=== PATIENT | female | born 1985 | race Hispanic/Latino ===

== ENCOUNTER 2020-09-25 03:54 | Inpatient (IN) | payer OTHER ==
[2020-09-25] VITALS (9 sets, daily range): BP systolic 91–107; BP diastolic 55–66
[~2020-09-25] VITALS: Ht 162.6 cm; Wt 71.8 kg
[2020-09-25 04:43] LABS: BASOPHILS % (AUTO) 0.2 % (0.0-5.0); HEMATOCRIT 39.5 % (36-48); LYMPHOCYTES % (AUTO) 46.2 % (21.0-51.0); MEAN CORPUSCULAR HEMOGLOBIN 29.2 pg (27.0-33.0); MEAN CORPUSCULAR HGB CONC 33.7 g/dL (32.0-36.0); MEAN CORPUSCULAR VOLUME 86.6 fL (79-99); MONOCYTES % (AUTO) 4.8 % (3.0-13.0); NEUTROPHILS % (AUTO) 48.6 % (40.0-77.0); PLATELET COUNT (AUTO) 112 K/uL (130-400); RED BLOOD CELL COUNT(AUTO) 4.56 MIL/uL (4.00-5.50); RED CELL DISTRIBUTION WIDTH 12.6 % (11.0-15.5); WHITE BLOOD COUNT (AUTO) 4.4 K/uL (4.8-10.8)
[2020-09-25 04:47] LABS: CARBON DIOXIDE 24 mmol/L (21-32); CHLORIDE 103 mmol/L (101-111); CREATININE 0.7 mg/dL (0.5-1.5); GLOMERULAR FILTR. RATE CALC 103 mL/min (>60); GLUCOSE,RANDOM 89 mg/dL (70-105); POTASSIUM 4.8 mmol/L (3.5-5.1); SODIUM SERUM 137 mmol/L (136-145); UREA NITROGEN, BLOOD 8 mg/dL (7-18)
[2020-09-25 05:04] LABS: ALANINE AMINOTRANSFERASE 53 U/L (12-78); ALBUMIN 2.8 g/dL (3.5-5.0); ASPARTATE AMINOTRANSFERASE 118 U/L (10-37); BILIRUBIN,DIRECT < 0.1 mg/dL (0.0-0.3); BILIRUBIN,TOTAL 0.6 mg/dL (0.2-1.0); LACTATE DEHYDROGENASE 884 U/L (81-234); TOTAL PROTEIN, SERUM 6.6 g/dL (6.0-8.3)
[2020-09-25 05:06] LABS: CREATINE KINASE, TOTAL 424 U/L (21-232)
[2020-09-25 05:46] LABS: ERYTHROCYTE SEDIMENTATION RATE 16 MM/HR (0-20)
[2020-09-25] MEDS ORDERED: ONDANSETRON 4MG INJ IV PRN (06:00)
[2020-09-25] MEDS ORDERED: NITROGLYCERIN 0.4 MG SL TAB SL PRN (06:00)
[2020-09-25] MEDS ORDERED: DEXAMETHASONE SOD PHOSPHATE 4 MG/ML 1ML VIAL IVP SCH (06:00)
[2020-09-25] MEDS ORDERED: ACETAMINOPHEN 325 MG TAB PO PRN ×2 (06:00)
[2020-09-25] MEDS ORDERED: CEFTRIAXONE 1G VIAL IVP SCH (06:00)
[2020-09-25] MEDS ORDERED: IOHEXOL-350 75 ML VIAL IV ONE (06:47)
[2020-09-25 06:58] LABS: PROTHROMBIN TIME 10.9 SEC (9.6-11.6)
[2020-09-25] MEDS ORDERED: ERGOCALCIFEROL (VITAMIN D2) 50,000 UNIT CAPSULE PO SCH (06:58)
[2020-09-25 06:59] LABS: PARTIAL THROMBOPLASTIN TIME 35.4 SEC (26.3-35.5)
[2020-09-25] MEDS ORDERED: DEXAMETHASONE 10MG/ML 1ML VIAL 10 MG in 0.9% NACL 50ML 50 ML IV SCH (07:00)
[2020-09-25] MEDS ORDERED: AZITHROMYCIN 500MG+NS 250ML 250 ML IV ONE (07:19)
[2020-09-25] MEDS: AZITHROMYCIN 500MG VIAL IVPB SCH ×2 (07:28→09:00)
[2020-09-25] MEDS ORDERED: PHARMACY COMMUNICATION MISC SCH ×2 (08:15→10:30)
[2020-09-25 08:29] LABS: ABG BASE EXCESS -1.7 mmol/L (-2.0-3.0); ABG HCO3 21.8 mmol/L (21.0-28.0); ABG OXYGEN SATURATION 98.9 % (95.0-99.0); ABG PCO2 34 mmHg (32-45)
[2020-09-25 09:00] LABS: HEMOGLOBIN A1C 5.6 % (4.0-6.0)
[2020-09-25] MEDS ORDERED: AZITHROMYCIN 500MG VIAL IVPB SCH (09:00)
[2020-09-25] MEDS ORDERED: ENOXAPARIN SODIUM 40 MG/0.4 ML SYRINGE SQ SCH (09:00)
[2020-09-25] MEDS ORDERED: ACETYLCYSTEINE 600 MG CAPSULE PO SCH (09:00)
[2020-09-25 09:18] LABS: ALCOHOL, BLOOD < 3 mg/dL (0-10); THYROID STIMULATING HORMONE 0.48 uIU/mL (0.36-3.74)
[2020-09-25] MEDS: ALBUTEROL INHALER 90MCG/INH IH SCH ×4 (10:00→20:46)
[2020-09-25] MEDS: GUAIFENESIN-DM 200/20 MG 10 ML PO SCH ×3 (10:40→20:34)
[2020-09-25] MEDS: ZINC SULFATE 220 CAPSULE PO SCH (10:40)
[2020-09-25] MEDS: ENOXAPARIN SODIUM 40 MG/0.4 ML SYRINGE SQ SCH ×2 (10:40→20:46)
[2020-09-25] MEDS: ASCORBIC ACID 500 MG TAB PO SCH (10:41)
[2020-09-25] MEDS: FAMOTIDINE 20MG TAB PO SCH ×2 (10:41→20:34)
[2020-09-25] MEDS: INSULIN HUMULIN R 100 UNIT/ML 3ML SQ SCH ×3 (11:30→20:44)
[2020-09-25] MEDS ORDERED: [UNRECOGNIZED DRUG - OTHER] IV ONE (14:00)
[2020-09-25] MEDS ORDERED: COMPOUND IV REFRIGERATED 1 EACH IVSOLN MISC PRN (14:00)
[2020-09-25] MEDS ORDERED: REMDESIVIR IV ONE (14:00)
[2020-09-25] MEDS ORDERED: GUAIFENESIN 600 MG TABLET.ER PO ONE (20:33)
[2020-09-25] MEDS: DEXAMETHASONE SOD PHOSPHATE 4 MG/ML 1ML VIAL IVP SCH (20:34)
[2020-09-26] MEDS: GUAIFENESIN-DM 200/20 MG 10 ML PO SCH ×3 (00:25→12:04)
[2020-09-26] MEDS: ALBUTEROL INHALER 90MCG/INH IH SCH ×6 (00:25→23:42)
[2020-09-26 03:54] VITALS: BP 109/59
[2020-09-26 05:07] LABS: BASOPHILS % (AUTO) 0.3 % (0.0-5.0); HEMATOCRIT 41.3 % (36-48); LYMPHOCYTES % (AUTO) 34.8 % (21.0-51.0); MEAN CORPUSCULAR HEMOGLOBIN 29.9 pg (27.0-33.0); MEAN CORPUSCULAR HGB CONC 34.1 g/dL (32.0-36.0); MEAN CORPUSCULAR VOLUME 87.7 fL (79-99); MONOCYTES % (AUTO) 6.4 % (3.0-13.0); NEUTROPHILS % (AUTO) 57.9 % (40.0-77.0); PLATELET COUNT (AUTO) 129 K/uL (130-400); RED BLOOD CELL COUNT(AUTO) 4.71 MIL/uL (4.00-5.50); RED CELL DISTRIBUTION WIDTH 12.6 % (11.0-15.5); WHITE BLOOD COUNT (AUTO) 3.4 K/uL (4.8-10.8)
[2020-09-26] MEDS: INSULIN HUMULIN R 100 UNIT/ML 3ML SQ SCH ×4 (05:30→20:58)
[2020-09-26] MEDS: REMDESIVIR LABS MISC SCH (05:33)
[2020-09-26 05:40] LABS: ALBUMIN 2.9 g/dL (3.5-5.0); BILIRUBIN,TOTAL 0.5 mg/dL (0.2-1.0); CREATININE 0.5 mg/dL (0.5-1.5); POTASSIUM 3.9 mmol/L (3.5-5.1); TOTAL PROTEIN, SERUM 6.7 g/dL (6.0-8.3)
[2020-09-26] MEDS: ZINC SULFATE 220 CAPSULE PO SCH (08:37)
[2020-09-26] MEDS: FAMOTIDINE 20MG TAB PO SCH ×2 (08:37→20:31)
[2020-09-26] MEDS: ASCORBIC ACID 500 MG TAB PO SCH (08:37)
[2020-09-26] MEDS: DEXAMETHASONE SOD PHOSPHATE 4 MG/ML 1ML VIAL IVP SCH ×2 (08:38→20:31)
[2020-09-26] MEDS: ENOXAPARIN SODIUM 40 MG/0.4 ML SYRINGE SQ SCH ×2 (08:39→20:33)
[2020-09-26 08:48] VITALS: BP 121/65
[2020-09-26 12:02] VITALS: BP 104/48
[2020-09-26] MEDS: BUSPIRONE HCL 5 MG TABLET PO SCH ×2 (12:04→20:31)
[2020-09-26] MEDS: GUAIFENESIN-CODEINE 5 ML SYRUP PO SCH ×2 (13:45→18:16)
[2020-09-26] MEDS: REMDESIVIR IV SCH (14:12)
[2020-09-26] MEDS: [UNRECOGNIZED DRUG - OTHER] IV SCH (14:12)
[2020-09-26 16:44] VITALS: BP 117/69
[2020-09-26 19:55] VITALS: BP 109/59
[2020-09-26 23:16] VITALS: BP 102/58
[2020-09-27] MEDS: GUAIFENESIN-CODEINE 5 ML SYRUP PO SCH ×5 (01:15→22:11)
[2020-09-27] MEDS: ALBUTEROL INHALER 90MCG/INH IH SCH ×6 (02:00→20:56)
[2020-09-27 03:53] VITALS: BP 96/51
[2020-09-27 04:50] LABS: EOSINOPHILS % (AUTO) 2.3 % (0.0-8.0); HEMATOCRIT 40.8 % (36-48); LYMPHOCYTES % (AUTO) 27.7 % (21.0-51.0); MEAN CORPUSCULAR HEMOGLOBIN 29.9 pg (27.0-33.0); MEAN CORPUSCULAR HGB CONC 33.8 g/dL (32.0-36.0); MEAN CORPUSCULAR VOLUME 88.3 fL (79-99); MONOCYTES % (AUTO) 8.5 % (3.0-13.0); PLATELET COUNT (AUTO) 159 K/uL (130-400); RED BLOOD CELL COUNT(AUTO) 4.62 MIL/uL (4.00-5.50); RED CELL DISTRIBUTION WIDTH 12.9 % (11.0-15.5)
[2020-09-27 05:28] LABS: ALBUMIN 2.7 g/dL (3.5-5.0); BILIRUBIN,TOTAL 0.4 mg/dL (0.2-1.0); CREATININE 0.6 mg/dL (0.5-1.5); CRP QUANTITATIVE 19.1 mg/L (0.00-9.0); MAGNESIUM 2.5 mg/dL (1.80-2.40); TOTAL PROTEIN, SERUM 6.4 g/dL (6.0-8.3)
[2020-09-27] MEDS: INSULIN HUMULIN R 100 UNIT/ML 3ML SQ SCH ×4 (06:02→20:55)
[2020-09-27] MEDS: REMDESIVIR LABS MISC SCH (06:25)
[2020-09-27 08:23] VITALS: BP 94/48
[2020-09-27] MEDS: FAMOTIDINE 20MG TAB PO SCH ×2 (08:49→20:17)
[2020-09-27] MEDS: BUSPIRONE HCL 5 MG TABLET PO SCH ×2 (08:49→20:17)
[2020-09-27] MEDS: ZINC SULFATE 220 CAPSULE PO SCH (08:49)
[2020-09-27] MEDS: ENOXAPARIN SODIUM 40 MG/0.4 ML SYRINGE SQ SCH ×2 (08:50→20:17)
[2020-09-27] MEDS: DEXAMETHASONE SOD PHOSPHATE 4 MG/ML 1ML VIAL IVP SCH ×2 (08:50→20:17)
[2020-09-27] MEDS: ASCORBIC ACID 500 MG TAB PO SCH (08:50)
[2020-09-27 12:28] VITALS: BP 118/66
[2020-09-27] MEDS: [UNRECOGNIZED DRUG - OTHER] IV SCH (13:01)
[2020-09-27] MEDS: REMDESIVIR IV SCH (13:01)
[2020-09-27 18:02] VITALS: BP 115/52
[2020-09-27 19:41] VITALS: BP 125/63
[2020-09-27 23:29] VITALS: BP 141/59
[2020-09-28] MEDS: ALBUTEROL INHALER 90MCG/INH IH SCH ×6 (02:06→21:52)
[2020-09-28 04:19] VITALS: BP 123/67
[2020-09-28 04:34] LABS: HEMATOCRIT 41.7 % (36-48); MEAN CORPUSCULAR HEMOGLOBIN 28.8 pg (27.0-33.0); MEAN CORPUSCULAR HGB CONC 32.9 g/dL (32.0-36.0); MEAN CORPUSCULAR VOLUME 87.6 fL (79-99); MONOCYTES % (AUTO) 7.8 % (3.0-13.0); NEUTROPHILS % (AUTO) 70.4 % (40.0-77.0); PLATELET COUNT (AUTO) 165 K/uL (130-400); RED BLOOD CELL COUNT(AUTO) 4.76 MIL/uL (4.00-5.50); RED CELL DISTRIBUTION WIDTH 12.7 % (11.0-15.5); WHITE BLOOD COUNT (AUTO) 6.1 K/uL (4.8-10.8)
[2020-09-28 04:49] LABS: ALBUMIN 2.8 g/dL (3.5-5.0); BILIRUBIN,TOTAL 0.5 mg/dL (0.2-1.0); CREATININE 0.7 mg/dL (0.5-1.5); CRP QUANTITATIVE 8.1 mg/L (0.00-9.0); POTASSIUM 3.6 mmol/L (3.5-5.1); TOTAL PROTEIN, SERUM 6.2 g/dL (6.0-8.3)
[2020-09-28] MEDS: INSULIN HUMULIN R 100 UNIT/ML 3ML SQ SCH ×4 (06:04→21:52)
[2020-09-28] MEDS: REMDESIVIR LABS MISC SCH (06:18)
[2020-09-28 08:00] VITALS: BP 126/68
[2020-09-28] MEDS: BUSPIRONE HCL 5 MG TABLET PO SCH ×2 (08:39→20:48)
[2020-09-28] MEDS: GUAIFENESIN-CODEINE 5 ML SYRUP PO SCH ×3 (08:39→20:48)
[2020-09-28] MEDS: FAMOTIDINE 20MG TAB PO SCH ×2 (08:39→20:48)
[2020-09-28] MEDS: ASCORBIC ACID 500 MG TAB PO SCH (08:39)
[2020-09-28] MEDS: ZINC SULFATE 220 CAPSULE PO SCH (08:40)
[2020-09-28] MEDS: ENOXAPARIN SODIUM 40 MG/0.4 ML SYRINGE SQ SCH ×2 (08:40→20:47)
[2020-09-28] MEDS: DEXAMETHASONE SOD PHOSPHATE 4 MG/ML 1ML VIAL IVP SCH ×2 (08:40→20:48)
[2020-09-28] MEDS: BENZONATATE 100 MG CAPSULE PO SCH ×3 (10:05→20:48)
[2020-09-28 12:00] VITALS: BP 148/66
[2020-09-28] MEDS: [UNRECOGNIZED DRUG - OTHER] IV SCH (13:29)
[2020-09-28] MEDS: REMDESIVIR IV SCH (13:29)
[2020-09-28 16:39] VITALS: BP 137/72
[2020-09-28 19:19] VITALS: BP 142/65
[2020-09-28 22:56] VITALS: BP 130/57
[2020-09-29] MEDS: GUAIFENESIN-CODEINE 5 ML SYRUP PO SCH ×3 (01:45→13:45)
[2020-09-29 04:05] VITALS: BP 148/70
[2020-09-29 04:43] LABS: CRP QUANTITATIVE 5.2 mg/L (0.00-9.0); MAGNESIUM 2.4 mg/dL (1.80-2.40)
[2020-09-29] MEDS: ALBUTEROL INHALER 90MCG/INH IH SCH ×6 (05:41→22:00)
[2020-09-29] MEDS: REMDESIVIR LABS MISC SCH (06:00)
[2020-09-29] MEDS: INSULIN HUMULIN R 100 UNIT/ML 3ML SQ SCH ×4 (06:21→20:20)
[2020-09-29 08:20] VITALS: BP 95/56
[2020-09-29] MEDS: DEXAMETHASONE SOD PHOSPHATE 4 MG/ML 1ML VIAL IVP SCH ×2 (08:27→20:19)
[2020-09-29] MEDS: BUSPIRONE HCL 5 MG TABLET PO SCH ×2 (08:27→20:19)
[2020-09-29] MEDS: ZINC SULFATE 220 CAPSULE PO SCH (08:27)
[2020-09-29] MEDS: ASCORBIC ACID 500 MG TAB PO SCH (08:27)
[2020-09-29] MEDS: ENOXAPARIN SODIUM 40 MG/0.4 ML SYRINGE SQ SCH (08:29)
[2020-09-29] MEDS: BENZONATATE 100 MG CAPSULE PO SCH ×2 (08:31→18:36)
[2020-09-29] MEDS: FAMOTIDINE 20MG TAB PO SCH ×2 (08:31→20:19)
[2020-09-29 11:37] LABS: ALBUMIN 2.8 g/dL (3.5-5.0); BILIRUBIN,DIRECT 0.2 mg/dL (0.0-0.3); BILIRUBIN,TOTAL 0.5 mg/dL (0.2-1.0); TOTAL PROTEIN, SERUM 5.5 g/dL (6.0-8.3)
[2020-09-29 12:24] VITALS: BP 101/67
[2020-09-29] MEDS ORDERED: GUAIFENESIN-DM 200/20 MG 10 ML PO PRN (14:00)
[2020-09-29] MEDS: [UNRECOGNIZED DRUG - OTHER] IV SCH (14:06)
[2020-09-29] MEDS: REMDESIVIR IV SCH (14:06)
[2020-09-29 18:23] VITALS: BP 99/60
[2020-09-29 20:10] VITALS: BP 104/66
[2020-09-30] VITALS (7 sets, daily range): BP systolic 98–141; BP diastolic 60–109
[2020-09-30] MEDS: BENZONATATE 100 MG CAPSULE PO SCH (00:35)
[2020-09-30] MEDS: ALBUTEROL INHALER 90MCG/INH IH SCH ×6 (02:28→20:21)
[2020-09-30 05:25] LABS: HEMATOCRIT 38.8 % (36-48); MEAN CORPUSCULAR HEMOGLOBIN 29.6 pg (27.0-33.0); MEAN CORPUSCULAR HGB CONC 34.3 g/dL (32.0-36.0); MEAN CORPUSCULAR VOLUME 86.4 fL (79-99); MONOCYTES % (AUTO) 6.2 % (3.0-13.0); NEUTROPHILS % (AUTO) 74.7 % (40.0-77.0); PLATELET COUNT (AUTO) 155 K/uL (130-400); RED BLOOD CELL COUNT(AUTO) 4.49 MIL/uL (4.00-5.50); RED CELL DISTRIBUTION WIDTH 12.4 % (11.0-15.5); WHITE BLOOD COUNT (AUTO) 7.1 K/uL (4.8-10.8)
[2020-09-30 05:38] LABS: ALBUMIN 2.8 g/dL (3.5-5.0); BILIRUBIN,TOTAL 0.5 mg/dL (0.2-1.0); CREATININE 0.6 mg/dL (0.5-1.5); MAGNESIUM 2.2 mg/dL (1.80-2.40); POTASSIUM 4.5 mmol/L (3.5-5.1); TOTAL PROTEIN, SERUM 5.7 g/dL (6.0-8.3)
[2020-09-30] MEDS: INSULIN HUMULIN R 100 UNIT/ML 3ML SQ SCH ×4 (06:32→20:24)
[2020-09-30] MEDS: BUSPIRONE HCL 5 MG TABLET PO SCH ×2 (08:52→20:04)
[2020-09-30] MEDS: ZINC SULFATE 220 CAPSULE PO SCH (08:52)
[2020-09-30] MEDS: FAMOTIDINE 20MG TAB PO SCH ×2 (08:52→20:03)
[2020-09-30] MEDS: ENOXAPARIN SODIUM 40 MG/0.4 ML SYRINGE SQ SCH (08:53)
[2020-09-30] MEDS: DEXAMETHASONE SOD PHOSPHATE 4 MG/ML 1ML VIAL IVP SCH (08:53)
[2020-09-30] MEDS: ASCORBIC ACID 500 MG TAB PO SCH (08:53)
[2020-09-30] MEDS: BENZONATATE 100 MG CAPSULE PO PRN (20:30)
[2020-10-01] MEDS: ALBUTEROL INHALER 90MCG/INH IH SCH ×4 (02:19→14:36)
[2020-10-01 03:53] VITALS: BP 103/65
[2020-10-01] MEDS: BENZONATATE 100 MG CAPSULE PO PRN (04:54)
[2020-10-01 05:50] LABS: BASOPHILS % (AUTO) 0.2 % (0.0-5.0); EOSINOPHILS % (AUTO) 0.2 % (0.0-8.0); HEMATOCRIT 40.1 % (36-48); LYMPHOCYTES % (AUTO) 24.4 % (21.0-51.0); MEAN CORPUSCULAR HEMOGLOBIN 28.9 pg (27.0-33.0); MEAN CORPUSCULAR HGB CONC 33.4 g/dL (32.0-36.0); MEAN CORPUSCULAR VOLUME 86.6 fL (79-99); MONOCYTES % (AUTO) 7.9 % (3.0-13.0); NEUTROPHILS % (AUTO) 65.6 % (40.0-77.0); PLATELET COUNT (AUTO) 171 K/uL (130-400); RED BLOOD CELL COUNT(AUTO) 4.63 MIL/uL (4.00-5.50); RED CELL DISTRIBUTION WIDTH 12.6 % (11.0-15.5); WHITE BLOOD COUNT (AUTO) 9.7 K/uL (4.8-10.8)
[2020-10-01 06:04] LABS: ALBUMIN 2.8 g/dL (3.5-5.0); BILIRUBIN,TOTAL 0.5 mg/dL (0.2-1.0); CREATININE 0.6 mg/dL (0.5-1.5); POTASSIUM 3.8 mmol/L (3.5-5.1); TOTAL PROTEIN, SERUM 5.9 g/dL (6.0-8.3)
[2020-10-01 07:30] VITALS: BP 96/56
[2020-10-01] MEDS: INSULIN HUMULIN R 100 UNIT/ML 3ML SQ SCH ×2 (07:30→11:30)
[2020-10-01] MEDS ORDERED: APIX2.5T PO ×2 (08:40→15:16)
[2020-10-01] MEDS ORDERED: DEXA6TAB PO (08:40)
[2020-10-01] MEDS ORDERED: DEXAMETHASONE 4 MG TAB PO SCH (09:00)
[2020-10-01] MEDS: ZINC SULFATE 220 CAPSULE PO SCH (09:02)
[2020-10-01] MEDS: ASCORBIC ACID 500 MG TAB PO SCH (09:02)
[2020-10-01] MEDS: BUSPIRONE HCL 5 MG TABLET PO SCH (09:02)
[2020-10-01] MEDS: FAMOTIDINE 20MG TAB PO SCH (09:03)
[2020-10-01] MEDS: ENOXAPARIN SODIUM 40 MG/0.4 ML SYRINGE SQ SCH (09:03)
[2020-10-01 11:38] VITALS: BP 96/52
[2020-10-01] MEDS ORDERED: PANT40TA PO ×2 (12:49→15:16)
== END 2020-10-01 16:20 | disposition home or self-care (01) | DRG 177 ==
LOC: EDH 03:54 → EDHIP 05:44 → 2AH 08:51 → 2BH 09-28 23:04
PROVIDERS: ADMIT Internal Medicine; ATTEND Internal Medicine
PROC: XW033E5 Introduction of Remdesivir Anti-infective into Peripheral Vein, Percutaneous Approach, New Technology Group 5 (ICD-10-PCS; principal; 2020-09-29)
DX: U07.1 COVID-19 (principal); J96.01 Acute respiratory failure with hypoxia; J12.82 Pneumonia due to coronavirus disease 2019; D68.59 Other primary thrombophilia; M62.82 Rhabdomyolysis; A08.39 Other viral enteritis; K75.9 Inflammatory liver disease, unspecified; D69.6 Thrombocytopenia, unspecified; D70.9 Neutropenia, unspecified
CPT/HCPCS: 36415; 36600; 71045; 71275; 76705; 80053; 80076; 82550; 82728; 82803; 82948; 83036; 83615; 83735; 84145; 84443; 84484; 84703; 85025; 85378; 85610; 85651; 85730; 86140; 87040; 87635; 93005; 93970; 94760; A4606; C9803; G0378; J0456; J0696; J1100; J1650; J1815; J2405; J7050; J8540; Q9967